=== PATIENT | female | born 1985 | race Caucasian/White ===

== ENCOUNTER 2023-11-13 11:15 | Emergency (ER) | payer OTHER, SELFPAY ==
[2023-11-13 11:26] VITALS: BP 163/110
[2023-11-13 11:42] VITALS: BP 155/92
--- NOTE | 2023-11-13 11:52 | ED.GENMED ---
History of Present Illness
General
Chief Complaint: Chest Pain
Source: patient
Exam Limitations: none
Time Seen by Provider: 11/13/23 11:36
Nursing documentation reviewed up to this point in time: agreed with
Travel History
Have you had any contact with someone who has COVID-19?: No
Do you have any symptoms of coronavirus? Fever > 100 degrees, chills, cough, shortness of breath, sore throat, loss of taste or smell, muscle aches, or headache?: No
History of Present Illness
History of Present Illness:
Patient presents ED secondary to 3-day history of persistent upper abdominal pain. Abdominal pain described as sharp, radiating to the back, associated with nausea sensation without vomiting. Denies trauma. Denies fever or chills. Patient
reports worsening pain with food. Denies diarrhea. Denies recent change in medications or diet. Patient does report history of COVID 3 weeks ago, which now has resolved. Denies previous history of similar symptoms. Of note, 3 years ago, patient
does recall x-ray revealing gallstones.
Past History
Past History
ED Past Medical History: None
ED Past Surgical History: Tonsilectomy
Social History
Tobacco: Non-smoker
Alcohol: Occasional
Drug: None
Personal:
Living: with family
Review of Systems
Review of Systems
Allergies reviewed?: Yes
All Other Systems: ROS reviewed and negative except as documented in HPI and ROS
Constitutional: Reports no symptoms; Denies fever
EENT: Reports no symptoms
Respiratory: Reports no symptoms
Cardiac: Reports no symptoms
ABD/GI: Reports abdominal pain and nausea; Denies vomiting
: Reports no symptoms
Musculoskeletal: Reports no symptoms
Skin: Reports no symptoms
Neurological: Reports no symptoms
Phy Exam
Physical Exam
Physical Exam:
Physical Exam
General: no apparent distress, not acutely ill. afebrile. afebrile
Head: nc/at. eomi
Neck: supple. no meningeal signs.
Heart: s1/s2 regular rate and rhythm, no murmur. equal radial pulses.
Lungs: no acute respiratory distress. clear bilaterally
Abdomen: normal bowel sounds. mild ruq/epigastric tenderness to palpation
Neuro: alert and oriented. no focal neurological deficits
Skin: no rash
Psychiatric: well kept. interactive and cooperative
Extremities: no edema. no calf tenderness.
Scores
Heart Score for Chest Pain Patients
STEMI patient?: Not applicable
Course
Orders/Labs/Results
Orders:
Orders
11/13/23 11:19
Electrocardiogram (*1) Urgent
Reason for Study: Chest Pain
EKG- Treatment ONCE
11/13/23 11:52
Test Result ONCE
US Abdomen Complete/Upper Urgent
Comment:
Reason For Exam: RUQ/epigastric pain
11/13/23 12:04
Complete Blood Count/With Diff Urgent
Comprehensive Metabolic Panel Urgent
HCG, Serum Qualitative Screen Urgent
Lipase Urgent
Urinalysis Reflex To Culture Urgent
Date Specimen was Collected: 11/13/23
Time Specimen was Collected: 11:52
Abnormal Lab Results
11/13/23
12:04
MPV 11.1 H fL
(7.4-10.4)
Creatinine 0.5 L mg/dL
(0.6-1.0)
11/13/23 12:04
11/13/23 12:04
Vital Signs
Initial and Last Documented VS:
Initial Vital Signs
Temp Pulse Resp Pulse Ox
98.1 F 94 16 99
11/13/23 11:23 11/13/23 11:23 11/13/23 11:23 11/13/23 11:23
Last Documented Vital Signs
Temp Pulse Resp BP Pulse Ox
98.1 F 104 21 162/98 99
11/13/23 11:23 11/13/23 11:45 11/13/23 11:45 11/13/23 13:51 11/13/23 11:23
MDM/Problems Addressed
MDM/Problems Addressed:
History, exam, and ultrasound consistent with biliary colic. Otherwise, patient remains afebrile, hemodynamically stable, and nontoxic-appearing. Patient will be given dietary recommendations along with referral to surgery for evaluation. Advised
to return to ED with worsening symptoms, i.e. fever/worsening pain/vomiting.
*EKG
Interpreted by ED Provider?: Yes
Heart Rate: 92
Rate: normal
Rhythm: sinus
[place]: normal axis
Interval: normal interval
*Critical Care Note
Total Time (30-74mins, 75-104mins- exclusive of procedures): Not Applicable
ED Attending Note
-
Portions of this chart may have been created with voice recognition software.� Occasional wrong word or��sound alike� substitutions may have occurred due to the inherent limitations of voice recognition software.
Discharge Plan
Departure
Patient Disposition: Home (Routine Discharge)
Date of Disposition: 11/13/23
Time of Disposition: 13:41
Patient with high blood pressure during this ER visit?: Yes
Condition: Good
Discharge Problem:
Colic, biliary
Instructions: Low Cholesterol, Saturated Fat, and Trans Fat Diet , Gallstones (DC)
Prescriptions:
No Action
prenat.vits,fam,cie-[id number] [ Vitamin] 1 TAB tablet
1 tab PO
Referrals:
Vish Mireles MD [Active] -
Aggie Gross CRNP [Non-Admitting Privileges] -
Activity Restrictions/Additional Instructions:
As discussed, please follow-up with the referred surgeon for further evaluation and treatment. Please return to ED with worsening symptoms, i.e. fever/worsening pain/vomiting.
Interventions
Interventions:
*ED COVID-19 Vaccine History Last Done: 11/13/23 11:23
*Nursing Disposition Last Done: 11/13/23 13:51
ED- Cardiac Assessment Last Done: 11/13/23 12:00
Discharge Date and Time
Discharge Date/Time: 11/13/23 13:52
[2023-11-13 12:20] LABS: % Basophils 0.3 % (0-2); % Eosinophils 1.9 % (0-6); % Immature Granulocytes 0.3 % (0-0.5); % Lymphocytes 26.9 % (20.5-51.1); % Monocytes 6.4 % (1.7-9.3); % Neutrophils 64.2 % (42.2-75.2); Absolute Eosinophils 0.1 10^3/uL (0-0.7); Absolute Lymphocytes 1.8 10^3/uL (1.2-3.4); Absolute Monocytes 0.4 10^3/uL (0.1-0.6); Absolute Neutrophils 4.3 10^3/uL (1.4-6.5); Hematocrit 38.7 % (37.0-47.0); Hemoglobin 13.2 g/dL (12.0-16.0); Mean Corp Hgb Conc. 34.1 g/dL (33.0-37.0); Mean Corpuscular Hgb 29.1 pg (27.0-31.0); Mean Corpuscular Volume 85.2 fL (81.0-99.0); Mean Platelet Volume 11.1 fL (7.4-10.4); Nucleated Red Blood Cells % 0 %; Platelet Count 237 10^3/uL (130-400); Red Blood Cell Count 4.54 10^6/uL (4.20-5.40); Red Cell Dist. Width 12.7 % (11.5-14.5); White Blood Cell Count 6.7 10^3/uL (4.8-10.8)
[2023-11-13 12:21] LABS: HCG, Serum Qualitative Screen Negative
[2023-11-13 12:27] LABS: ALT (SGPT) 18 U/L (0-35); AST (SGOT) 25 U/L (14-36); Albumin 4.2 g/dl (3.5-5.0); Alkaline Phosphatase 73 U/L (38-126); Blood Urea Nitrogen 13 mg/dl (7-17); Carbon Dioxide 26 mmol/L (22-30); Chloride 107 mmol/L (98-107); Glucose 99 mg/dl (70-99); Lipase 97 U/L (23-300); Potassium 3.9 mmol/L (3.5-5.1); Sodium 137 mmol/L (135-145); Total Bilirubin 0.5 mg/dl (0.2-1.3); Total Protein 6.8 g/dl (6.3-8.2); eGFR > 60.00
[2023-11-13 12:51] LABS: Urine Albumin Negative (Neg - Trace); Urine Bilirubin Negative (Negative); Urine Character Clear (Clear); Urine Color Yellow; Urine Glucose Negative (Negative); Urine Ketone Negative (Negative); Urine Leukocyte Negative (Negative); Urine Nitrite Negative (Negative); Urine Occult Blood Negative (Negative); Urine Specific Gravity 1.005 (<1.030); Urine Urobilinogen Negative (Neg - 1+); Urine pH 6.5 (5.0-9.0)
[2023-11-13 13:51] VITALS: BP 162/98
== END 2023-11-13 13:52 | disposition home or self-care (01) ==
LOC: EMR 11:15
PROVIDERS: EMERGENCY PHYSICIAN Emergency Medicine; FAMILY PHYSICIAN Internal Medicine
DX: K80.50 Calculus of bile duct without cholangitis or cholecystitis without obstruction (principal); R11.0 Nausea; R03.0 Elevated blood-pressure reading, without diagnosis of hypertension; Z86.16 Personal history of COVID-19
CPT/HCPCS: 99284; 76700; 80053; 81003; 83690; 84703; 85025; 93005

== ENCOUNTER → 2024-06-02 15:09 | Outpatient (REF) | payer OTHER, SELFPAY | LOC: HWWDC 15:09 | PROVIDERS: ATTENDING PHYSICIAN Internal Medicine | DX: Z12.31 Encounter for screening mammogram for malignant neoplasm of breast (principal) | CPT/HCPCS: 77063; 77067 ==

== ENCOUNTER → 2024-06-15 08:49 | Outpatient (REF) | payer OTHER, SELFPAY | LOC: WDC 08:49 | PROVIDERS: ATTENDING PHYSICIAN Internal Medicine | DX: R92.8 Other abnormal and inconclusive findings on diagnostic imaging of breast (principal) | CPT/HCPCS: 76642 ==

== ENCOUNTER 2024-07-01 06:26 | Day surgery (SDC) | payer OTHER, SELFPAY ==
[2024-06-24 08:25] VITALS: BMI 34.2
[2024-06-24 08:51] LABS: Hematocrit 38.6 % (37.0-47.0); Hemoglobin 13.3 g/dL (12.0-16.0); Mean Corp Hgb Conc. 34.5 g/dL (33.0-37.0); Mean Corpuscular Volume 86.9 fL (81.0-99.0); Mean Platelet Volume 11.3 fL (7.4-10.4); Platelet Count 237 10^3/uL (130-400); Red Blood Cell Count 4.44 10^6/uL (4.20-5.40); Red Cell Dist. Width 12.6 % (11.5-14.5)
[2024-06-24 10:06] LABS: ALT (SGPT) 21 U/L (0-35); AST (SGOT) 25 U/L (14-36); Albumin 4.1 g/dl (3.5-5.0); Alkaline Phosphatase 66 U/L (38-126); Blood Urea Nitrogen 19 mg/dl (7-17); Calcium 9.5 mg/dl (8.4-10.2); Carbon Dioxide 23 mmol/L (22-30); Chloride 103 mmol/L (98-107); Estimated Creatinine Clearance > 125 ml/min; Glucose 84 mg/dl (70-99); Potassium 4.4 mmol/L (3.5-5.1); Sodium 139 mmol/L (135-145); Total Bilirubin 0.3 mg/dl (0.2-1.3); Total Protein 6.6 g/dl (6.3-8.2); eGFR > 60.00
[2024-07-01] VITALS (8 sets, daily range): BP systolic 133–148; BP diastolic 52–93; BMI 34.2
--- NOTE | 2024-07-01 12:53 | HP.FOC2 ---
Focused History & Physical
Chief Complaint
HPI:
Chief Complaint: Symptomatic cholelithiasis/chronic calculus cholecystitis
HPI / Indication for Planned Procedure: Patient is a 39-year-old female whose had a longstanding history of intermittent episodes of postprandial epigastric abdominal pain rating to her back with substernal chest tightness, nausea and vomiting.
These typically occur later in the day or overnight. She has been found to have gallstones on ultrasound imaging with otherwise unremarkable laboratory testing. There is no biliary ductal dilation. Patient presents today for cholecystectomy in
the setting of suspected symptomatic cholelithiasis/chronic calculus cholecystitis.
Relevant Past Medical History: Negative and Other (No significant medical history)
Relevant Social History: Negative
Relevant Family History: Negative
Relevant Past Surgical History: Positive for (Tonsils, wisdom teeth extraction)
Review of Systems
Review of Pertinent Systems: All Systems Negative
Medication
See Medication form for detailed medications: Yes
Medication List (including Herbals & OTC):
gabapentin 300 mg capsule 300 mg PO HS 06/23/24
ibuprofen 400 mg tablet 400 mg PO Q8H 06/23/24
vitamin B complex 1 tab PO DAILY 06/23/24
vitamin D2-vitamin K1 1 dose PO DAILY 06/23/24
Medications Reviewed: Yes
Allergies and Reactions
Patient has Allergies: No
Noted Allergies and Reactions:
Allergy/AdvReac Type Severity Reaction Status Date / Time
No Known Allergies Allergy Verified 06/23/24 10:43
Pertinent Physical Exam
All Other Systems: Negative
Head/Neck: Normal
Lungs: Normal
Heart: Normal
Abdomen: Normal
Extremities: Normal
Neurological: Normal
Diagnosis / Assessment
39-year-old female presenting for scheduled cholecystectomy for management of symptomatic cholelithiasis
Plan / Procedure
Laparoscopic cholecystectomy with intraoperative cholangiogram
Anesthesia/Sedation to be done by Anesthesia Provider: Yes
--- NOTE | 2024-07-01 14:46 | W.SUR.PREOP ---
Pre-Operative Surgical Note
-
I have examined this patient prior to the performance of the scheduled procedure.
The patient's condition is unchanged from the time of the current History and
Physical and the patient is able to undergo the scheduled procedure.
--- NOTE | 2024-07-01 17:01 | W.IMMPOSTOP ---
Addendum entered and electronically signed by Vish Mireles MD 07/01/24 17:22:
#[id number]
Original Note:
Surgical Immed Post Op Note
-
Primary Surgeon: Aline
Assisting Surgeon: Aida Thrasher PA-C
Pre-op Diagnosis: Chronic calculus cholecystitis
Post-op Diagnosis: Chronic calculus cholecystitis
Procedure Performed: Laparoscopic cholecystectomy with intraoperative cholangiogram
Anesthesia Type: GETA +0.25% Marcaine
Specimen / Cultures: Gallbladder
Estimated Blood Loss: 12 mL
Complications: None immediate
Operative Findings: Large gallbladder contracted and full of stones. Stone impacted at cystic infundibular junction. Short chronically inflamed cystic duct. Intraoperative cholangiogram normal. Cystic duct controlled with Endoloop. Gallbladder
removed intact and extracted at epigastric 12 mm trocar site.
The assistance of Aida Thrasher PA-C was required due to the complexity of the procedure. During the procedure Aida Thrasher PA-C assisted with laparoscopic camera, retraction and closure of the surgical sites.
== END 2024-07-01 18:40 | disposition home or self-care (01) ==
LOC: SDS 06:26
PROVIDERS: ATTENDING PHYSICIAN Surgery; FAMILY PHYSICIAN Internal Medicine
DX: K80.10 Calculus of gallbladder with chronic cholecystitis without obstruction (principal)
CPT/HCPCS: 47563; 88304; 36415; 74300; 76000; 80053; 85027; 93005

== ENCOUNTER → 2025-03-01 08:15 | Outpatient (REF) | payer OTHER, SELFPAY | LOC: HWRAD 08:15 | PROVIDERS: ATTENDING PHYSICIAN Student in an Organized Health Care Education/Training Program; FAMILY PHYSICIAN Internal Medicine | DX: R10.2 Pelvic and perineal pain (principal) | CPT/HCPCS: 76830; 76856 ==

== ENCOUNTER → 2025-06-06 12:18 | Outpatient (REF) | payer OTHER, SELFPAY | LOC: HWWDC 12:18 | PROVIDERS: ATTENDING PHYSICIAN Student in an Organized Health Care Education/Training Program; FAMILY PHYSICIAN Internal Medicine | DX: Z12.31 Encounter for screening mammogram for malignant neoplasm of breast (principal) | CPT/HCPCS: 77063; 77067 ==

== ENCOUNTER → 2025-08-24 07:51 | Outpatient (REF) | payer OTHER, SELFPAY | LOC: HWRAD 07:51 | PROVIDERS: ATTENDING PHYSICIAN Student in an Organized Health Care Education/Training Program; FAMILY PHYSICIAN Internal Medicine | DX: N92.0 Excessive and frequent menstruation with regular cycle (principal) | CPT/HCPCS: 76830; 76856 ==